=== PATIENT | female | born 1955 | race Caucasian/White ===

== ENCOUNTER → 2023-04-21 12:06 | Outpatient (CLI) | payer MEDICARE, SELFPAY ==
--- NOTE | 2023-04-21 12:08 | DI.RAD.S_ITS ---
PROCEDURE: XR FINGER RT MIN 2V INDICATIONS: Right thumb injury TECHNIQUE: AP hand, 2 views of the 1st finger(s) acquired. COMPARISON: None. FINDINGS: Bones: No fractures or dislocations. Interphalangeal joint degenerative change. 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 No suspicious bony lesions. Soft tissues: No suspicious soft tissue calcifications. IMPRESSION: No acute fracture demonstrated. Dictated by: Ashwin Shields M.D. on 04/21/2023 at 15:19 Approved by: Ashwin Shields M.D. on 04/21/2023 at 15:20
== END ==
PROVIDERS: Referring Provider Nurse Practitioner Family; Visit Provider Nurse Practitioner Family
DX: S69.91XA Unspecified injury of right wrist, hand and finger(s), initial encounter (principal); M18.11 Unilateral primary osteoarthritis of first carpometacarpal joint, right hand; X58.XXXA Exposure to other specified factors, initial encounter
CPT/HCPCS: 73140